=== PATIENT | female | born 1940 | race Caucasian/White ===

== ENCOUNTER 2018-03-13 11:36 | Outpatient (CLI) | payer MEDICARE, BC ==
[2018-03-13] MEDS ORDERED: Gadobenate Dimeglumine 529 MG/1 ML (20ML VIAL) ONE (12:59)
--- NOTE | 2018-03-13 16:10 | MRI ---
LEFT FOOT MRI WITH AND WITHOUT IV CONTRAST 03/13/18 HISTORY: 77-year-old female with left toe infection. There is some increased soft tissue thickening involving the third toe with some enhancement, evidence for cellulitis. No evidence for associated drainable a bscess. There are some subtle STIR and T2 hyperintense changes involving the proximal mid and distal phalanges of the third toe without significant abnormal T1 hypointensity changes. This is consisten t with nonspecific osteitis without colby osteomyelitis at this time, although certainly nonspecific osteitis can progress to osteomyelitis. Marked deformity of the second toe metatarsophalangeal joint with considerable flattening and hypertrophic osteophytosis. Evidence for prior surgery and/or trauma . 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 IMPRESSION: Marked focal soft tissue swelling of the third toe with enhancement, evidence for cellulitis with hal e abnormal T2 and STIR hyperintense changes without significant T2 hypointense changes, evidence for at least nonspecific osteitis; however, without colby osteomyelitis at this time, although certainly nonspecific osteitis can progress to osteomyelitis. Deformity of the second metatarsophalangeal joint. T2 hyperintensity changes within the intrinsic muscles of the foot. POS: RENÉ
== END 2018-03-13 11:37 | disposition home or self-care (01) ==
LOC: MRI 11:36
PROVIDERS: ATTEND Podiatrist Foot & Ankle Surgery
DX: L08.9 Local infection of the skin and subcutaneous tissue, unspecified (principal); M79.89 Other specified soft tissue disorders; L03.032 Cellulitis of left toe; M86.8X6 Other osteomyelitis, lower leg
CPT/HCPCS: 82565; A9579